=== PATIENT | female | born 1985 | race African-American/Black ===

== ENCOUNTER 2016-07-30 13:36 | Emergency (ER) | payer OTHER ==
[~2016-07-30] VITALS: Ht 175.3 cm; Wt 81.6 kg
[~2016-07-30 13:36] MED LIST: CEPH-264 PO; CLIN300C86 PO; DULO60CA6 PO; GABA-587 PO; HYDR12.53 PO; METR500T PO; OXYC-250 PO; PHEN-318 PO; PRED20TA PO; PROP40TA PO; TRAM-29 PO
[2016-07-30] MEDS ORDERED: IV NORMAL SALINE 1000ML BAG 1,000 ML IV ONE (13:45)
[2016-07-30 14:21] LABS: BASO % 1 % (0-3); EOS % 2 % (0-3); HEMATOCRIT 39.6 % (36.0-47.0); HEMOGLOBIN 12.6 g/dL (12.0-15.5); LYMPH # 2.3 x10^3/uL (1.0-4.8); LYMPH % 34 % (24-48); MEAN CORPUSCULAR HEMOGLOBIN 26 pg (25-35); MEAN CORPUSCULAR HGB CONC 32 g/dL (31-37); MEAN CORPUSCULAR VOLUME 80 fL (79-100); MONO % 4 % (0-9); NEUT % 59 % (31-73); PLATELET COUNT 297 x10^3/uL (140-400); RED BLOOD COUNT 4.92 x10^6/uL (3.50-5.40); RED CELL DISTRIBUTION WIDTH 20.6 % (11.5-14.5); WHITE BLOOD COUNT 6.9 x10^3/uL (4.0-11.0)
[2016-07-30 14:38] LABS: PLT ESTIMATE ADEQUATE (ADEQUATE)
[2016-07-30 14:39] LABS: ANISOCYTOSIS MOD
[2016-07-30 14:40] LABS: NEG OBC SER NEG; POS OBC SER POS
[2016-07-30 15:00] VITALS: BP 160/94
[2016-07-30 15:06] LABS: OBC FLU VALID
[2016-07-30 15:18] LABS: CREATININE 0.9 mg/dL (0.6-1.0); GFR 87.3; POTASSIUM 3.7 mmol/L (3.5-5.1)
[2016-07-30 15:23] LABS: ALBUMIN 3.5 g/dL (3.4-5.0); TOTAL BILIRUBIN 0.4 mg/dL (0.2-1.0); TOTAL PROTEIN 7.1 g/dL (6.4-8.2)
[2016-07-30] MEDS ORDERED: CYCL10TA2 PO (15:40)
[2016-07-30] MEDS ORDERED: CYCLOBENZAPRINE 10 MG TABLET. PO ONE (15:45)
--- NOTE | 2016-07-30 16:04 | ED.ADGEN ---
Past Medical History Past Medical History: Anxiety, Arthritis, Fibromyalgia, Hypertension, Stroke Additional Past Medical Histor: lupus, RA Past Surgical History: , Tubal ligation Additional Information: Pt reports she is taking Chantix and now only smoking about 3 cigs/day. Alcohol Use: None Drug Use: None Adult General Chief Complaint Chief Complaint: NAUSEA/VOMITING/DIARRHA HPI HPI Patient is a 31 year old woman, history of fibromyalgia, hypertension, lupus who presents emergency department with multiple complaints. Patient states she' s been experiencing nausea, with occasional episodes of vomiting, diarrhea over the past several weeks. She states that she had a possible syncopal episode at home today, states that she was leaving her bathroom when she believes that she passed out, was feeling lightheaded when this occurred, she had just finished using the bathroom, she states that she remembers leaving the bathroom, and then was opening the door for EMS, she did call EMS herself as she was home alone. She states that she had not had any diarrhea or vomiting just before this episode occurred, had felt flushed and hot, and had just used the restroom as stated, both urination and defecation. Patient states that she's had similar episodes of syncope multiple times, and that they have been evaluated previously without any specific cause identified. She denies any possibility of , states that she ate around 11:30 this morning without issue, no chest pain, no shortness of breath, no focal weakness emesis or tingling, is complaining of fibromyalgia pain which she states is worse in the past several days, no fevers, occasional chills, no urinary complaints. she states that she is out of her pain medication currently, as she ran out and missed her appointment with her primary care provider. She is complaining of her typical fibromyalgia type pain throughout her back and legs. Review of Systems Review of Systems Constitutional: Denies fever, complaining of chills. Eyes: Denies change in visual acuity. [] HENT: Denies nasal congestion or sore throat. [] Respiratory: Denies cough or shortness of breath. [] Cardiovascular: Denies chest pain or edema. [] GI: Denies abdominal pain, nausea, vomiting, bloody stools or diarrhea. [] : Denies dysuria. [] Musculoskeletal: Body aches and pain consistent with her fibromyalgia. Integument: Denies rash. [] Neurologic: Denies headache, focal weakness or sensory changes. [] Endocrine: Denies polyuria or polydipsia. [] Lymphatic: Denies swollen glands. [] Psychiatric: Denies depression or anxiety. [] Current Medications Current Medications Current Medications Medications (Trade) Dose Ordered Sig/Mago Start Time Stop Time Status Last Admin Dose Admin Cyclobenzaprine HCl (Flexeril) 10 mg 1X ONCE 07/30/16 15:45 07/30/16 15:46 DC 07/30/16 15:31 10 MG Sodium Chloride (Iv Sodium Chloride 0.9% 1000ml Bag) 1,000 ml @ 1,000 mls/hr 1X ONCE 07/30/16 13:45 07/30/16 14:44 DC 07/30/16 14:40 1,000 MLS/HR Allergies Allergies Allergies Coded Allergies Type Severity Reaction Last Updated Verified naproxen Allergy Unknown 05/20/16 Yes Physical Exam Physical Exam Constitutional: Well developed, well nourished, no acute distress, non-toxic appearance. [] HENT: Normocephalic, atraumatic, bilateral external ears normal, oropharynx moist, no oral exudates, nose normal. [] Eyes: PERRLA, EOMI, conjunctiva normal, no discharge. [] Neck: Normal range of motion, no tenderness, supple, no stridor. [] Cardiovascular:Heart rate regular rhythm, no murmur [] Lungs & Thorax: Bilateral breath sounds clear to auscultation [] Abdomen: Bowel sounds normal, soft, no tenderness, no masses, no pulsatile masses. [] Skin: Warm, dry, no erythema, no rash. [] Back: No tenderness, no CVA tenderness. [] Extremities: No tenderness, no cyanosis, no clubbing, ROM intact, no edema. [] Neurologic: Alert and oriented X 3, normal motor function, normal sensory function, no focal deficits noted. [] Psychologic: Affect normal, judgement normal, mood normal. [] Current Patient Data Vital Signs Vital Signs Date Time Temp Pulse Resp B/P Pulse Ox O2 Delivery O2 Flow Rate FiO2 07/30/16 13:36 98.7 77 16 147/89 100 Room Air 98.7 Lab Values Laboratory Tests Test 07/30/16 14:00 07/30/16 14:32 07/30/16 14:55 White Blood Count 6.9x10^3/uL (4.0-11.0) Red Blood Count 4.92x10^6/uL (3.50-5.40) Hemoglobin 12.6g/dL (12.0-15.5) Hematocrit 39.6% (36.0-47.0) Mean Corpuscular Volume 80fL (79-100) Mean Corpuscular Hemoglobin 26pg (25-35) Mean Corpuscular Hemoglobin Concent 32g/dL (31-37) Red Cell Distribution Width 20.6% (11.5-14.5) H Platelet Count 297x10^3/uL (140-400) Neutrophils (%) (Auto) 59% (31-73) Lymphocytes (%) (Auto) 34% (24-48) Monocytes (%) (Auto) 4% (0-9) Eosinophils (%) (Auto) 2% (0-3) Basophils (%) (Auto) 1% (0-3) Neutrophils # (Auto) 4.0x10^3uL (1.8-7.7) Lymphocytes # (Auto) 2.3x10^3/uL (1.0-4.8) Monocytes # (Auto) 0.3x10^3/uL (0.0-1.1) Eosinophils # (Auto) 0.2x10^3/uL (0.0-0.7) Basophils # (Auto) 0.0x10^3/uL (0.0-0.2) Platelet Estimate Adequate (ADEQUATE) Anisocytosis Mod Serum Test, Qualitative Negative (NEG) Influenza Type A Antigen Negative (NEGATIVE) Influenza Type B Antigen Negative (NEGATIVE) Sodium Level 143mmol/L (136-145) Potassium Level 3.7mmol/L (3.5-5.1) Chloride Level 109mmol/L (98-107) H Carbon Dioxide Level 28mmol/L (21-32) Anion Gap 6 (6-14) Blood Urea Nitrogen 10mg/dL (7-20) Creatinine 0.9mg/dL (0.6-1.0) Estimated GFR (Cockcroft-Gault) 87.3 BUN/Creatinine Ratio 11 (6-20) Glucose Level 78mg/dL (70-99) Calcium Level 9.0mg/dL (8.5-10.1) Total Bilirubin 0.4mg/dL (0.2-1.0) Aspartate Amino Transferase (AST) 21U/L (15-37) Alanine Aminotransferase (ALT) 22U/L (14-59) Alkaline Phosphatase 48U/L (46-116) Total Protein 7.1g/dL (6.4-8.2) Albumin 3.5g/dL (3.4-5.0) Albumin/Globulin Ratio 1.0 (1.0-1.7) Lipase 105U/L (73-393) Laboratory Tests 07/30/16 14:00 Laboratory Tests 07/30/16 14:55 EKG EKG EC: Sinus rhythm, heart rate 85 bpm, upright axis, QTC of 421, AK 136, QRS of 88, no ST elevations or depressions, no evidence of acute ST abnormalities. [] Radiology/Procedures Radiology/Procedures Not indicated. [] Course & Med Decision Making Course & Med Decision Making Pertinent Labs and Imaging studies reviewed. (See chart for details) After discussion with patient, it is unclear if she did experience a syncopal episode, where she was feeling more lightheadedness without any true loss of consciousness. She denies striking her head or neck, denies any other new or different symptoms aside from her chronic fibromyalgia type pain. Patient with a normal examination neurologically, no evidence of lower airspace disease or upper airspace disease identified. Flu swab was performed in the ED, which was negative, along with basic laboratory studies, patient received IV fluids in the ED. Discussed with the patient that although she has taken chronic pain medications for her fibromyalgia previously, this is needs to be addressed by her primary care provider, she was given a cyclobenzaprine the ED for her pain, had orthostatics performed for negative, was ambulating without difficulty in the ED. I did discuss with patient the importance of following up with primary care provider, and concerning symptoms that would prompt return to the ED. Patient voiced understanding and agreement, discharged home in stable condition with a short course of cyclobenzaprine, clear and detailed return instructions, and plan to follow-up with her primary care provider. Dragon Disclaimer Dragon Disclaimer This electronic medical record was generated, in whole or in part, using a voice recognition dictation system. Departure Impression: Primary Impression: Chronic pain Disposition: 01 HOME, SELF-CARE Condition: STABLE Scripts Cyclobenzaprine Hcl 10 Mg [id number] Mg PO TID PRN MUSCLE PAIN #10 TAB Prov:LUIZ DON DO 07/30/16 Problem Qualifiers Primary Impression: Chronic pain Chronic pain type: other chronic pain Qualified Code: G89.29 - Other chronic pain LUIZ DON DO Jul 30, 2016 16:03
--- NOTE | 2016-07-31 07:08 | EKG ---
[facility] [address] [place] [address] Test Date: 2016-07-30 Test Time: 14:36:28 Pat Name: VICKEY GILMORE Department: Room: Gender: F [employer]: : 1985 Requested By: LUIZ DON Order Number: [id number] Reading MD: Measurements Intervals Cache Rate: 85 P: 67 MT: 136 QRS: 73 QRSD: 88 T: 68 QT: 354 QTc: 421 Interpretive Statements SINUS RHYTHM BIATRIAL ENLARGEMENT QRS(T) CONTOUR ABNORMALITY CONSIDER ANTEROLATERAL MYOCARDIAL DAMAGE RI6.01 Unconfirmed report Compared to ECG 01/07/2016 01:42:43 Atrial abnormality now present
== END 2016-07-30 15:48 | disposition home or self-care (01) ==
LOC: ER 13:36
DX: G89.29 Other chronic pain (principal); M79.7 Fibromyalgia; R55 Syncope and collapse; R11.2 Nausea with vomiting, unspecified; I10 Essential (primary) hypertension; M19.90 Unspecified osteoarthritis, unspecified site; Z86.73 Personal history of transient ischemic attack (TIA), and cerebral infarction without residual deficits; M32.9 Systemic lupus erythematosus, unspecified; M06.9 Rheumatoid arthritis, unspecified; F17.210 Nicotine dependence, cigarettes, uncomplicated; Z98.51 Tubal ligation status; Z88.8 Allergy status to other drugs, medicaments and biological substances
CPT/HCPCS: 36415; 80053; 83690; 84703; 85007; 85027; 87804; 93005; 96360; 99285; J7030

== ENCOUNTER 2016-09-25 10:11 | Emergency (ER) | payer OTHER ==
[~2016-09-25] VITALS: Ht 175.3 cm; Wt 78.9 kg
[~2016-09-25 10:11] MED LIST changes: +CYCL10TA2 PO
[2016-09-25] MEDS ORDERED: PREDNISONE 20 MG TABLET PO ONE (10:45)
[2016-09-25] MEDS ORDERED: OXYCODONE/APAP 7.5/325 TABLET. PO ONE (10:45)
[2016-09-25] MEDS ORDERED: hydrALAZINE 20 MG/ML VIAL. IVP ONE (10:45)
[2016-09-25] MEDS ORDERED: CLONIDINE HCL 0.1 MG TABLET PO ONE (11:15)
--- NOTE | 2016-09-25 11:50 | PHYS DOC ---
Past Medical History Past Medical History: Anxiety, Arthritis, Depression, Fibromyalgia, Hypertension, Stroke Additional Past Medical Histor: lupus, RA Past Surgical History: , Tubal ligation Alcohol Use: None Drug Use: None Adult General Chief Complaint Chief Complaint: SUICDAL IDEATION HPI HPI Patient is a 31 year old female brought to the ED by ambulance with the complaint of suicidal ideation. EMS reports that the patient texted her [employer] and told her [employer] that she felt like taking some pills. The [employer] called 911. EMS went to find the patient stable, she did not really want to come to the hospital but they convinced her to come in and get checked out. The patient tells me that she does have a history of depression. She lately has been feeling overwhelmed. She has been dealing with a lot of medical problems and also has chronic pain. She has been dealing with family situation that is causing her stress. The patient does have a medical doctor who she sees regularly and is helping her. Her medical problems include lupus, "rheumatoid arthritis", fibromyalgia, hypertension, chronic pain. She was recently started on oxycodone for pain. She also takes gabapentin for pain. She takes prednisone 20 mg daily currently and believes that that is causing some of her symptoms as well. The patient this morning was feeling overwhelmed. She had her pill bottles sitting in front of her and she was thinking about taking pills. She contacted her [employer], who she has through the mental health department, and states that she did not take any pills other than her usual morning dose. The patient did not take her prednisone to take everything else that she was supposed to take. The patient says she did take about 4 or 5 gabapentin last night. She cannot really say why she did that, she doesn't believe that she was suicidal, but she felt overwhelmed and was having a lot of pain. The patient specifically denies taking any pills this morning and she denies taking anything other than the 45 gabapentin last night. She denies taking any aspirin or acetaminophen. She denies any illicit substances. Patient has a history of depression and states that she has had 2 prior suicide attempts for which she was hospitalized. One was around 2008 or , one was around 2004 or . She took pills both times. Review of Systems Review of Systems Constitutional: Denies fever or chills [] Eyes: Denies change in visual acuity, redness, or eye pain [] HENT: Denies nasal congestion or sore throat [] Respiratory: Denies cough or shortness of breath [] Cardiovascular: Denies chest pain GI: Denies abdominal pain, nausea, vomiting, bloody stools or diarrhea [] : Denies dysuria or hematuria [] Musculoskeletal: Generalized body aches and pains attributed to her chronic medical conditions Integument: Denies rash or skin lesions [] Neurologic: Denies headache, focal weakness or sensory changes [] Current Medications Current Medications Current Medications Medications (Trade) Dose Ordered Sig/Mago Start Time Stop Time Status Last Admin Dose Admin Clonidine HCl (Catapres) 0.1 mg 1X ONCE 09/25/16 11:15 09/25/16 11:16 DC 09/25/16 11:38 0.1 MG Hydralazine HCl (Apresoline) 10 mg 1X ONCE 09/25/16 10:45 09/25/16 10:46 DC Oxycodone/ Acetaminophen (Percocet 7.5/ 325) 1 tab 1X ONCE 09/25/16 10:45 09/25/16 10:46 DC 09/25/16 10:57 1 TAB Prednisone (Prednisone) 20 mg 1X ONCE 09/25/16 10:45 09/25/16 10:46 DC 09/25/16 10:57 20 MG Allergies Allergies Allergies Coded Allergies Type Severity Reaction Last Updated Verified naproxen Allergy Unknown 05/20/16 Yes Physical Exam Physical Exam Constitutional: Well developed, well nourished, no acute distress, non-toxic appearance. Alert, mentating normally, affect is depressed but not tearful, no evident toxidrome. HENT: Normocephalic, atraumatic, bilateral external ears normal, nose normal. [ ] Eyes: conjunctiva normal, no discharge. [] Neck: Normal range of motion, no stridor. [] Cardiovascular:Heart rate regular rhythm, no murmur [] Lungs & Thorax: Bilateral breath sounds clear to auscultation [] Skin: Warm, dry, no erythema, no rash. [] Extremities: No tenderness, no cyanosis, no clubbing, ROM intact, no edema. [] Neurologic: Alert and oriented X 3, normal motor function, normal sensory function, no focal deficits noted. [] Current Patient Data Vital Signs Vital Signs Date Time Temp Pulse Resp B/P Pulse Ox O2 Delivery O2 Flow Rate FiO2 09/25/16 11:38 80 166/100 09/25/16 10:11 98.1 18 98 Room Air 98.1 EKG EKG [] Radiology/Procedures Radiology/Procedures [] Course & Med Decision Making Course & Med Decision Making Pertinent Labs and Imaging studies reviewed. (See chart for details) 31-year-old female brought to the ED by EMS from home for suicidal ideation. The complaint was made by the patient's [employer]. The patient had told the [employer] that she was thinking about taking pills. I discussed the situation at length with the patient. The patient tells me that she definitely does not want to , she feels overwhelmed, depressed, and she had a brief thought of taking pills but she states at this time she is not suicidal. She did consent to be seen in the ED but she stated she would rather not have blood tests done. Her initial blood pressure was elevated but she had taken her morning blood pressure meds not long before arrival. Her blood pressure did come down to the range of 160 and then I did give her clonidine 0.1 mg for blood pressure control. I called Papa, from the pat team, who came to the ED to see the patient and talked to her at length. In fact, the patient has an appointment today in the mental health clinic with her provider. He made arrangements for her to be sent in a cab from the ED to her mental health clinic appointment. He felt that the patient is stable for discharge and close outpatient follow-up and I agree. The patient has a good relationship with her [employer] and follow-up arrangements in place. [] Xochilt Disclaimer Xochilt Disclaimer This electronic medical record was generated, in whole or in part, using a voice recognition dictation system. Departure Departure Impression: Primary Impression: Depression with suicidal ideation Additional Impression: Chronic pain Disposition: 01 HOME, SELF-CARE Condition: STABLE Referrals: MELCHOR PEREZ MD (PCP) Patient Instructions: Suicidal Feelings, How to Help Yourself Additional Instructions: As you discussed with Papa, you will keep your appointment this afternoon at the mental health clinic. Take all medications as directed. As we discussed, if you wish to lower your prednisone dose or stop taking prednisone, it's important to work with your doctor to decrease your dose slowly so you don't have medical problems from stopping it. Be sure to take all of your medications as directed. You were recently prescribed an opiate for pain. Be sure you understand the side effects of this medication. Be sure you understand exactly how your doctor wants you to take it. Discharge planning as you discussed with [facility] team. Problem Qualifiers MARLENA ALVAREZ MD Sep 25, 2016 11:49
[2016-09-25 13:30] VITALS: BP 127/89
== END 2016-09-25 13:32 | disposition home or self-care (01) ==
LOC: ER 10:11
DX: R45.851 Suicidal ideations (principal); F32.9 Major depressive disorder, single episode, unspecified; G89.29 Other chronic pain; M06.9 Rheumatoid arthritis, unspecified; M79.7 Fibromyalgia; I10 Essential (primary) hypertension; F41.9 Anxiety disorder, unspecified; M32.9 Systemic lupus erythematosus, unspecified; Z86.73 Personal history of transient ischemic attack (TIA), and cerebral infarction without residual deficits; Z88.8 Allergy status to other drugs, medicaments and biological substances
CPT/HCPCS: 99284; J7512

== ENCOUNTER 2016-10-15 20:16 | Emergency (ER) | payer OTHER ==
[~2016-10-15] VITALS: Ht 175.3 cm; Wt 79.4 kg
[2016-10-15] MEDS: HYDROMORPHONE 2 MG/ML VIAL. IV PRN ×2 (21:48→23:18)
[2016-10-15] MEDS ORDERED: LORAZEPAM 1 MG TABLET. PO ONE (22:00)
[2016-10-15] MEDS ORDERED: ONDANSETRON PF 4 MG/2 ML VIAL. IV ONE (22:00)
--- NOTE | 2016-10-15 23:33 | PHYS DOC ---
Past Medical History Past Medical History: Anxiety, Arthritis, Depression, Fibromyalgia, Hypertension, TIA Additional Past Medical Histor: lupus, RA Past Surgical History: , Tubal ligation Alcohol Use: None Drug Use: None Adult General Chief Complaint Chief Complaint: WEAKNESS/GENERALIZED HPI HPI 31-year-old female presenting to the emergency department today with pain all over. She reports having pain from hurting fingertips to the tips of her toes. She describes it as severe pain is worse with movement. It is nonradiating intermittent tenderness present for 6 weeks. She denies any specific location of the pain. Review of systems is negative for shortness of breath fevers chills nausea vomiting. All other review of systems is negative unless otherwise noted in history of present illness. Review of Systems Review of Systems SEE ABOVE. Current Medications Current Medications Current Medications Medications (Trade) Dose Ordered Sig/Mago Start Time Stop Time Status Last Admin Dose Admin Hydromorphone HCl (Dilaudid) 0.5 mg PRN Q1HR PRN 10/15/16 21:45 10/15/16 23:18 0.5 MG Lorazepam (Ativan) 1 mg 1X ONCE 10/15/16 22:00 10/15/16 22:01 DC 10/15/16 21:47 1 MG Ondansetron HCl (Zofran) 4 mg 1X ONCE 10/15/16 22:00 10/15/16 22:01 DC 10/15/16 21:47 4 MG Allergies Allergies Allergies Coded Allergies Type Severity Reaction Last Updated Verified naproxen Allergy Unknown 05/20/16 Yes Physical Exam Physical Exam Constitutional: Well developed, well nourished, no acute distress, non-toxic appearance. [] HENT: Normocephalic, atraumatic, bilateral external ears normal, oropharynx moist, no oral exudates, nose normal. Eyes: PERRLA, EOMI, conjunctiva normal, no discharge. Neck: Normal range of motion, no tenderness, supple, no stridor. [] Cardiovascular:Heart rate regular rhythm, no murmur Lungs & Thorax: Bilateral breath sounds clear to auscultation [] Abdomen: Bowel sounds normal, soft, no tenderness, no masses, no pulsatile masses. Skin: Warm, dry, no erythema, no rash. Back: No tenderness, no CVA tenderness. [] Extremities: No tenderness, no cyanosis, no clubbing, ROM intact, no edema. [] Neurologic: Alert and oriented X 3, normal motor function, normal sensory function, no focal deficits noted. Psychologic: Affect normal, judgement normal, mood normal. [] Current Patient Data Vital Signs Vital Signs Date Time Temp Pulse Resp B/P Pulse Ox O2 Delivery O2 Flow Rate FiO2 10/15/16 23:18 18 Room Air 10/15/16 21:48 100 10/15/16 20:25 98.0 74 138/85 98.0 EKG EKG [] Radiology/Procedures Radiology/Procedures [] Course & Med Decision Making Course & Med Decision Making Pertinent Labs and Imaging studies reviewed. (See chart for details) [] 31-year-old female presenting to the emergency department today with generalized pain all over. Afebrile normal vital signs. Normal clinical physical exam. A she was treated with pain medications in the emergency department. She was in discharged home to follow up with her primary care doctor for chronic fibromyalgia treatment. Dragon Disclaimer Dragon Disclaimer This electronic medical record was generated, in whole or in part, using a voice recognition dictation system. Departure Departure Impression: Primary Impression: Fibromyalgia Disposition: HOME, SELF-CARE Condition: STABLE Referrals: MELCHOR PEREZ MD (PCP) Patient Instructions: Fibromyalgia Additional Instructions: Thank you for allowing us to participate in your care today. Followup with your primary care physician in 3 days if your symptoms do not improve. If you do not have a primary care provider you can ask for a list of our primary care providers. Return to the emergency department you have any new or concerning findings. This should be evaluated by the primary care physician and any necessary consulting services for continued management within a few days after discharge. Return to emergency room if you have any new or concerning symptoms including but not limited to fever, chills, nausea, vomiting, intractable pain, any new rashes, chest pain, shortness of air, uncontrolled bleeding, difficulty breathing, and/or vision loss. You may have been prescribed medication that can change in your level of thinking and ability to operate machinery. These medications include hydrocodone and Ativan. Also, Benadryl has been known to do this as well. Be sure to check with your pharmacist and ask if the medications you've prescribed can affect your level of consciousness. I recommend not operating heavy machinery or driving while on medication such as these. PARRIS ALCALA MD Oct 15, 2016 23:33
[2016-10-15] MEDS ORDERED: MORP15TA PO (23:37)
[2016-10-15 23:40] VITALS: BP 103/55
== END 2016-10-16 | disposition home or self-care (01) ==
LOC: ER 20:16
DX: M79.7 Fibromyalgia (principal); F41.9 Anxiety disorder, unspecified; F32.9 Major depressive disorder, single episode, unspecified; I10 Essential (primary) hypertension; M32.9 Systemic lupus erythematosus, unspecified; M06.9 Rheumatoid arthritis, unspecified; Z88.8 Allergy status to other drugs, medicaments and biological substances; Z86.73 Personal history of transient ischemic attack (TIA), and cerebral infarction without residual deficits
CPT/HCPCS: 81025; 96374; 96375; 96376; 99284; J1170; J2405

== ENCOUNTER 2016-10-20 20:47 | Emergency (ER) | payer OTHER ==
[~2016-10-20] VITALS: Ht 175.3 cm; Wt 83.5 kg
[~2016-10-20 20:47] MED LIST changes: +MORP15TA PO
[2016-10-20 22:00] VITALS: BP 109/70
[2016-10-20] MEDS ORDERED: PRED20TA PO (22:07)
--- NOTE | 2016-10-20 22:08 | PHYS DOC ---
Past Medical History Past Medical History: Anxiety, Arthritis, Depression, Fibromyalgia, Hypertension, Seizure, TIA Additional Past Medical Histor: lupus, RA Past Surgical History: , Tubal ligation Alcohol Use: None Drug Use: None Adult General Chief Complaint Chief Complaint: SEIZURE HPI HPI Patient is a 31 year old female who presents with complaint of seizure-like activity noticed by male significant other this evening. States she has not had a seizure in 2 months. States she was late taking gabapentin today because she had to get it refilled. She otherwise notes diffuse body pain that has been present chronically, but is worse recently after having been off chronic prednisone 20mg daily for the past 1.5 week. Also states she has bilateral headache, gradual in onset, exactly the same as prior headaches that she takes excedrin for. She denies f/c, n/v, diarrhea, vision changes, numbness, tingling , weakness. Review of Systems Review of Systems Constitutional: Denies fever or chills [] Eyes: Denies change in visual acuity, redness, or eye pain [] HENT: Denies nasal congestion or sore throat [] Respiratory: Denies cough or shortness of breath [] Cardiovascular: No additional information not addressed in HPI [] GI: Denies abdominal pain, nausea, vomiting, bloody stools or diarrhea [] : Denies dysuria or hematuria [] Musculoskeletal: Denies back pain [] Integument: Denies rash or skin lesions [] Neurologic: Denies focal weakness or sensory changes [] Endocrine: Denies polyuria or polydipsia [] Current Medications Current Medications Current Medications Medications (Trade) Dose Ordered Sig/[facility] Start Time Stop Time Status Last Admin Dose Admin Acetaminophen/ Aspirin/Caffeine (Excedrin Migraine) 1 tab 1X ONCE 10/20/16 22:30 10/20/16 22:30 DC Prednisone (Prednisone) 20 mg STK-MED ONCE 10/20/16 22:17 10/20/16 22:18 DC Allergies Allergies Allergies Coded Allergies Type Severity Reaction Last Updated Verified naproxen Allergy Unknown 05/20/16 Yes Physical Exam Physical Exam Constitutional: Well developed, well nourished, no acute distress, non-toxic appearance. [] HENT: Normocephalic, atraumatic, bilateral external ears normal, oropharynx moist, no oral exudates, nose normal. [] Eyes: PERRLA, EOMI, conjunctiva normal, no discharge. [] Neck: Normal range of motion, supple, no stridor. [] Cardiovascular:Heart rate regular rhythm [] Lungs & Thorax: Bilateral breath sounds clear to auscultation [] Abdomen: Bowel sounds normal, soft, no tenderness. [] Skin: Warm, dry, no erythema, no rash. [] Back: Normal ROM. [] Extremities: Diffuse tenderness with no visual or palpable abnormality, ROM intact, no edema. [] Neurologic: Alert and oriented X 3, normal motor function, normal sensory function, no focal deficits noted, cranial nerves II through XII intact. [] Psychologic: Affect normal, judgement normal, mood normal. [] Current Patient Data Vital Signs Vital Signs Date Time Temp Pulse Resp B/P Pulse Ox O2 Delivery O2 Flow Rate FiO2 10/20/16 22:00 60 10 109/70 100 Room Air 10/20/16 21:05 98.2 98.2 EKG EKG EKG as interpreted by me as normal sinus rhythm, rate 66, no ST-T changes, normal intervals, no ectopy Course & Med Decision Making Course & Med Decision Making Pertinent Labs and Imaging studies reviewed. (See chart for details) Will give short course of prednisone for home and encouraged her to see here PCP for other medication refills in the future. Wants a neurology clinic referral. Told her not to drive until cleared by Neurology or her PCP. Return precautions given. She understands and agrees with plan. Dragon Disclaimer Dragon Disclaimer This electronic medical record was generated, in whole or in part, using a voice recognition dictation system. Departure Departure Impression: Primary Impression: Chronic pain Additional Impression: Seizure-like activity Disposition: 01 HOME, SELF-CARE Condition: STABLE Referrals: MELCHOR PEREZ MD (PCP) Patient Instructions: Seizure, Adult, [id number] Additional Instructions: Follow up with your primary care doctor within 3 days. Please call Neurology clinic to schedule follow up appointment within 1 week. Return for any concerns. Scripts Prednisone 20 Mg Tablet1 Tab PO DAILY #4 TAB Prov:Darien SMITH MD 10/20/16 Problem Qualifiers Primary Impression: Chronic pain Chronic pain type: chronic pain syndrome Qualified Code: G89.4 - Chronic pain syndrome Darien SMITH MD Oct 20, 2016 22:08
[2016-10-20] MEDS ORDERED: PREDNISONE 20 MG TABLET ONE (22:17)
[2016-10-20] MEDS ORDERED: PREDNISONE 20 MG TABLET PO ONE (22:30)
[2016-10-20] MEDS ORDERED: ASA/APAP/CAFFEINE 250/250/65MG TABLET. PO ONE (22:30)
--- NOTE | 2016-10-21 00:24 | EKG ---
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
== END 2016-10-20 22:30 | disposition home or self-care (01) ==
LOC: ER 20:47
DX: R56.9 Unspecified convulsions (principal); G89.29 Other chronic pain; R51 Headache; F32.9 Major depressive disorder, single episode, unspecified; F41.9 Anxiety disorder, unspecified; I10 Essential (primary) hypertension; M32.9 Systemic lupus erythematosus, unspecified; M79.7 Fibromyalgia; Z86.73 Personal history of transient ischemic attack (TIA), and cerebral infarction without residual deficits; M06.9 Rheumatoid arthritis, unspecified; Z79.82 Long term (current) use of aspirin; Z98.51 Tubal ligation status; Z88.8 Allergy status to other drugs, medicaments and biological substances
CPT/HCPCS: 93005; 99284

== ENCOUNTER 2016-10-24 19:16 | Emergency (ER) | payer OTHER ==
[~2016-10-24] VITALS: Ht 175.3 cm; Wt 83.5 kg
--- NOTE | 2016-10-24 21:21 | PHYS DOC ---
Past Medical History Past Medical History: Anxiety, Arthritis, Depression, Fibromyalgia, Hypertension, Seizure, Schizophrenia, TIA, Other Additional Past Medical Histor: lupus, RA Past Surgical History: , Tubal ligation Alcohol Use: None Drug Use: None Adult General Chief Complaint Chief Complaint: MULTIPLE COMPLAINTS HPI HPI Patient is a 31 year old female who presents with complaint of anxiety. Patient states that she is having anxiety due to multiple issues at this time. Patient states that she was with people who "I've known all my life" who she states helped her get medications filled that were prescribed to her for high blood pressure, anxiety, and chronic pain. Patient states that at some point these individuals took her medication and her currently stating that they don't know anything about the meds that she had accidentally left in the car. Patient states that she is having severe anxiety and also complains of generalized body pain which she attributes to fibromyalgia and systemic lupus erythematosus. The patient is currently asking that we contact authorities as she would like to make a police report on this matter. The patient also states that she contacted her doctor who told her to come to the emergency department for help with her symptoms. Patient states that her blood pressure was elevated last night which she attributes to anxiety. Patient also admits that she was admitted to [facility] approximately one week ago for treatment of anxiety. Patient denies any localizing pain but states that she hurts "all over." Patient denies any suicidal or homicidal ideation currently. Review of Systems Review of Systems Constitutional: Anxiety, Denies fever or chills [] Eyes: Denies change in visual acuity, redness, or eye pain [] HENT: Denies nasal congestion or sore throat [] Respiratory: Denies cough or shortness of breath [] Cardiovascular: Denies chest pain or edema [] GI: Denies abdominal pain, nausea, vomiting, bloody stools or diarrhea [] : Denies dysuria or hematuria [] Musculoskeletal: Body aches [] Integument: Denies rash or skin lesions [] Neurologic: Denies headache, focal weakness or sensory changes [] Current Medications Current Medications Current Medications Medications (Trade) Dose Ordered Sig/[facility] Start Time Stop Time Status Last Admin Dose Admin Ceftriaxone Sodium (Rocephin 1gm Ivpb For Omni) 50 ml @ 100 mls/hr 1X ONCE 10/24/16 22:30 10/24/16 22:59 DC 10/24/16 22:37 100 MLS/HR Haloperidol Lactate (Haldol) 5 mg 1X ONCE 10/24/16 21:30 10/24/16 21:31 DC 10/24/16 21:37 5 MG Lorazepam 1 mg 1 mg 1X ONCE 10/24/16 21:30 10/24/16 21:31 DC 10/24/16 21:33 1 MG Sodium Chloride 500 ml @ 500 mls/hr 1X ONCE 10/24/16 21:30 10/24/16 22:29 DC 10/24/16 21:31 500 MLS/HR Allergies Allergies Allergies Coded Allergies Type Severity Reaction Last Updated Verified naproxen Allergy Intermediate 10/24/16 Yes Physical Exam Physical Exam Constitutional: Alert, afebrile, appears anxious. [] HENT: Normocephalic, atraumatic, bilateral external ears normal, oropharynx moist, no oral exudates, nose normal. [] Eyes: PERRLA, EOMI, conjunctiva normal, no discharge. [] Neck: Normal range of motion, no tenderness, supple, no stridor. [] Cardiovascular:Heart rate regular rhythm, no murmur [] Lungs & Thorax: Bilateral breath sounds clear to auscultation [] Abdomen: Bowel sounds normal, soft, no tenderness, no masses, no pulsatile masses. [] Skin: Warm, dry, no erythema, no rash. [] Back: No tenderness, no CVA tenderness. [] Extremities: Diffuse muscle tenderness, no cyanosis, no clubbing, ROM intact, no edema. [] Neurologic: Alert and oriented X 3, normal motor function, normal sensory function, no focal deficits noted. [] Current Patient Data Vital Signs Vital Signs Date Time Temp Pulse Resp B/P Pulse Ox O2 Delivery O2 Flow Rate FiO2 10/24/16 21:30 72 134/85 98 Room Air 10/24/16 19:48 100 24 100.0 Lab Values Laboratory Tests Test 10/24/16 20:15 10/24/16 21:35 White Blood Count 6.7x10^3/uL (4.0-11.0) Red Blood Count 4.32x10^6/uL (3.50-5.40) Hemoglobin 11.0g/dL (12.0-15.5) L Hematocrit 34.9% (36.0-47.0) L Mean Corpuscular Volume 81fL (79-100) Mean Corpuscular Hemoglobin 26pg (25-35) Mean Corpuscular Hemoglobin Concent 32g/dL (31-37) Red Cell Distribution Width 18.0% (11.5-14.5) H Platelet Count 236x10^3/uL (140-400) Neutrophils (%) (Auto) 61% (31-73) Lymphocytes (%) (Auto) 28% (24-48) Monocytes (%) (Auto) 7% (0-9) Eosinophils (%) (Auto) 4% (0-3) H Basophils (%) (Auto) 0% (0-3) Neutrophils # (Auto) 4.1x10^3uL (1.8-7.7) Lymphocytes # (Auto) 1.8x10^3/uL (1.0-4.8) Monocytes # (Auto) 0.4x10^3/uL (0.0-1.1) Eosinophils # (Auto) 0.3x10^3/uL (0.0-0.7) Basophils # (Auto) 0.0x10^3/uL (0.0-0.2) Sodium Level 137mmol/L (136-145) Potassium Level 5.1mmol/L (3.5-5.1) Chloride Level 103mmol/L (98-107) Carbon Dioxide Level 27mmol/L (21-32) Anion Gap 7 (6-14) Blood Urea Nitrogen 10mg/dL (7-20) Creatinine 0.8mg/dL (0.6-1.0) Estimated GFR (Cockcroft-Gault) 100.0 Glucose Level 87mg/dL (70-99) Calcium Level 9.2mg/dL (8.5-10.1) Magnesium Level 1.7mg/dL (1.8-2.4) L Lipase 70U/L (73-393) L Urine Collection Type Unknown Urine Color Red Urine Clarity Bloody Urine pH 8.0 Urine Specific [place] <=1.005 Urine Protein 100mg/dL (NEG-TRACE) Urine Glucose (UA) Negativemg/dL (NEG) Urine Ketones (Stick) Negativemg/dL (NEG) Urine Blood Large (NEG) Urine Nitrite Positive (NEG) Urine Bilirubin Negative (NEG) Urine Urobilinogen Dipstick 0.2mg/dL (0.2 mg/dL) Urine Leukocyte Esterase Trace (NEG) Urine RBC Tntc/HPF (0-2) Urine WBC 5-10/HPF (0-4) Urine Squamous Epithelial Cells Few/LPF Urine Bacteria Many/HPF (0-FEW) Urine Mucus Slight/LPF Urine Opiates Screen Neg (NEG) Urine Methadone Screen Neg (NEG) Urine Barbiturates Neg (NEG) Urine Phencyclidine Screen Pos (NEG) Urine Amphetamine/Methamphetamine Neg (NEG) Urine Benzodiazepines Screen Pos (NEG) Urine Cocaine Screen Neg (NEG) Urine Cannabinoids Screen Pos (NEG) Urine Ethyl Alcohol Neg (NEG) Laboratory Tests 10/24/16 20:15 Laboratory Tests 10/24/16 20:15 EKG EKG Not performed [] Radiology/Procedures Radiology/Procedures Not performed [] Course & Med Decision Making Course & Med Decision Making Pertinent Labs and Imaging studies reviewed. (See chart for details) Patient was given Haldol and Ativan in the emergency department with improvement in patient's anxiety. Patient was found to have urinary tract infection and was given a dose of Rocephin to initiate treatment. [facility] Police Department was contacted and officers came to the emergency department to talk with the patient. They stated however that the patient did not give them much information and stated that she would need to contact them at a later time when she was ready to talk with them in regards to what happened with her medications. The patient otherwise has improved. The patient will be discharged with a prescription for Keflex for treatment of urinary tract infection. Advised patient follow-up with her primary doctor in the next 3-5 days and return to emergency department for any worsening symptoms. Patient voiced understanding and in agreement with treatment plan. Dragon Disclaimer Dragon Disclaimer This electronic medical record was generated, in whole or in part, using a voice recognition dictation system. Departure Departure Impression: Primary Impression: UTI (urinary tract infection) Additional Impressions: Anxiety Substance abuse Disposition: 01 HOME, SELF-CARE Condition: IMPROVED Referrals: MELCHOR PEREZ MD (PCP) Patient Instructions: Anxiety and Panic Attacks, Urinary Tract Infection Additional Instructions: Follow-up with her primary doctor in the next 3-5 days. Return to the emergency department for any worsening symptoms. Scripts Cephalexin (Keflex)500 Mg Capsule1 Cap PO BID #14 CAP Prov:FOLAND,BIANCA J MD 10/24/16 Problem Qualifiers Primary Impression: UTI (urinary tract infection) Urinary tract infection type: site unspecified Hematuria presence: with hematuria Qualified Code: N39.0 - Urinary tract infection, site not specified BIANCA PINEDA MD Oct 24, 2016 21:21
[2016-10-24 21:26] LABS: BASO % 0 % (0-3); EOS % 4 % (0-3); HEMATOCRIT 34.9 % (36.0-47.0); LYMPH # 1.8 x10^3/uL (1.0-4.8); LYMPH % 28 % (24-48); MEAN CORPUSCULAR HEMOGLOBIN 26 pg (25-35); MEAN CORPUSCULAR HGB CONC 32 g/dL (31-37); MEAN CORPUSCULAR VOLUME 81 fL (79-100); MONO % 7 % (0-9); NEUT % 61 % (31-73); PLATELET COUNT 236 x10^3/uL (140-400); RED BLOOD COUNT 4.32 x10^6/uL (3.50-5.40); WHITE BLOOD COUNT 6.7 x10^3/uL (4.0-11.0)
[2016-10-24] MEDS ORDERED: LORAZEPAM 2 MG/ML VIAL. IV ONE (21:30)
[2016-10-24] MEDS ORDERED: HALOPERIDOL LACTATE 5 MG/ML VIAL. IVP ONE (21:30)
[2016-10-24] MEDS ORDERED: IV NORMAL SALINE 500ML BAG 500 ML IV ONE (21:30)
[2016-10-24 21:55] LABS: BILIRUBIN,URINE NEGATIVE (NEG); GLUCOSE,URINE NEGATIVE (NEG); NITRITE,URINE POSITIVE (NEG); PROTEIN,URINE 100 mg/dL (NEG-TRACE); UROBILINOGEN,URINE 0.2 mg/dL (0.2 mg/dL)
[2016-10-24 21:57] LABS: BACTERIA,URINE MANY /HPF (0-FEW); RBC,URINE TNTC /HPF (0-2); SQUAMOUS EPITHELIAL CELL,UR FEW /LPF
[2016-10-24 22:03] LABS: BARBITURATES NEG (NEG); BENZODIAZEPINES POS (NEG); CANNABINOIDS POS (NEG); COCAINE NEG (NEG); METHADONE NEG (NEG); OPIATES NEG (NEG); PHENCYCLIDINE POS (NEG)
[2016-10-24 22:06] LABS: ETHANOL, URINE NEG (NEG)
[2016-10-24 22:10] LABS: CALCIUM 9.2 mg/dL (8.5-10.1); CREATININE 0.8 mg/dL (0.6-1.0); POTASSIUM 5.1 mmol/L (3.5-5.1)
[2016-10-24 22:11] LABS: MAGNESIUM 1.7 mg/dL (1.8-2.4)
[2016-10-24] MEDS ORDERED: CEPH-264 PO (22:32)
[2016-10-24 23:30] VITALS: BP 111/61
--- NOTE | 2016-10-26 18:24 | VNOTE ---
CALL BACK NOTE CALL BACK Microbiology 10/24/16 Urine Culture - Final, Complete 10/24/16 Urine Culture Result 1 (KENNEY) - Final, Complete 10/24/16 Antimicrobic Susceptibility - Final, Complete Attempted to contact patient regards to urine culture being positive for Escherichia coli. She was placed on cephalosporin when she was discharged which is intermediate coverage. Attempted to contact right the number [phone] answer stating that she is not accepting calls. Patient will be provided with a certified letter. YOEL SOLANO FRONT DESK ASSOCIATE Oct 26, 2016 18:24
== END 2016-10-24 23:41 | disposition home or self-care (01) ==
LOC: ER 19:16
DX: F41.9 Anxiety disorder, unspecified (principal); N39.0 Urinary tract infection, site not specified; F19.10 Other psychoactive substance abuse, uncomplicated; F32.9 Major depressive disorder, single episode, unspecified; M79.7 Fibromyalgia; I10 Essential (primary) hypertension; F20.9 Schizophrenia, unspecified; G89.29 Other chronic pain; M32.9 Systemic lupus erythematosus, unspecified; M06.9 Rheumatoid arthritis, unspecified; Z86.73 Personal history of transient ischemic attack (TIA), and cerebral infarction without residual deficits; Z88.6 Allergy status to analgesic agent
CPT/HCPCS: 36415; 80048; 80305; 80320; 81001; 83690; 83735; 85027; 87086; 96361; 96365; 96375; 99284; J0690; J1630; J2060; J7040; G0481

== ENCOUNTER 2016-10-25 17:07 | Emergency (ER) | payer OTHER ==
[2016-10-25] MEDS ORDERED: IV NORMAL SALINE 1000ML BAG 1,000 ML IV ONE ×2 (17:15→21:30)
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
[2016-10-25 17:53] LABS: BASO % 0 % (0-3); EOS % 2 % (0-3); HEMATOCRIT 33.2 % (36.0-47.0); HEMOGLOBIN 10.6 g/dL (12.0-15.5); LYMPH # 1.2 x10^3/uL (1.0-4.8); LYMPH % 17 % (24-48); MEAN CORPUSCULAR HEMOGLOBIN 25 pg (25-35); MEAN CORPUSCULAR HGB CONC 32 g/dL (31-37); MEAN CORPUSCULAR VOLUME 79 fL (79-100); MONO % 7 % (0-9); NEUT % 74 % (31-73); PLATELET COUNT 229 x10^3/uL (140-400); RED BLOOD COUNT 4.21 x10^6/uL (3.50-5.40); RED CELL DISTRIBUTION WIDTH 17.9 % (11.5-14.5); WHITE BLOOD COUNT 7.4 x10^3/uL (4.0-11.0)
[2016-10-25 18:15] LABS: CALCIUM 8.6 mg/dL (8.5-10.1); CREATININE 1.1 mg/dL (0.6-1.0); GFR 69.2; POTASSIUM 4.7 mmol/L (3.5-5.1)
[2016-10-25] MEDS ORDERED: CONTRAST GIVEN MC PRN (18:15)
[2016-10-25] MEDS ORDERED: IOHEXOL 300 MG/ML 75 ML VIAL IV ONE (18:15)
[2016-10-25 18:20] LABS: ALBUMIN 3.4 g/dL (3.4-5.0); DIRECT BILIRUBIN 0.1 mg/dL (0.0-0.2); TOTAL BILIRUBIN 0.3 mg/dL (0.2-1.0); TOTAL PROTEIN 7.1 g/dL (6.4-8.2)
[2016-10-25 18:42] LABS: ETHANOL < 10 mg/dL (0-10)
[2016-10-25 18:48] LABS: NEG OBC UR NEG; POS OBC UR POS
[2016-10-25 18:51] LABS: BARBITURATES NEG (NEG); BENZODIAZEPINES POS (NEG); CANNABINOIDS POS (NEG); COCAINE NEG (NEG); METHADONE NEG (NEG); OPIATES NEG (NEG); PHENCYCLIDINE POS (NEG)
--- NOTE | 2016-10-25 19:01 | RAD ---
Examination: CT head and cervical spine without contrast HISTORY History of fall, headache, neck pain. COMPARISON None available. TECHNIQUE Axial CT images of the head was performed without contrast. Axial CT images of cervical spine was performed without contrast. Coronal sagittal reformats were performed. Exposure: One or more of the following dose reduction technique were utilized for this examination: 1. Automated exposure control. 2.Adjustment of MA and /or KV according to patient size. 3. Use of iterative reconstruction technique. Findings: There is no evidence of midline shift. There is no acute intracranial bleed or extra-axial collection identified. Streak artifact limits evaluation. The basal cisterns are not effaced. The cervical vertebral bodies are maintained. There is no evidence of listhesis identified. Evaluation cervical spine is limited due to positioning of the cervical spine in the CT gantry. Lucency identified in the midline in the posterior arch of C1 likely congenital non fusion of the posterior arch of C1. The lateral masses of C1 align with C2 vertebra. The C2 dens appears intact. No evidence of prevertebral soft tissue swelling identified. IMPRESSION 1. No acute intracranial findings. 2. No acute fracture cervical spine. Correlate clinically. 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 Electronically signed by: Man Perales (Oct 25, 2016 19:00:23)
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
[2016-10-25] MEDS: fentaNYL PF VIAL 100 MCG/2 ML VIAL IV PRN ×2 (19:53→21:01)
[2016-10-25 20:30] VITALS: BP 155/96
--- NOTE | 2016-10-25 20:34 | RAD ---
Examination: CT of the thoracic and lumbar spine without contrast. HISTORY History of neck pain, back pain. COMPARISON None available. TECHNIQUE Axial CT images of the thoracic and lumbar spine were performed using reformats from the CT of the abdomen pelvis. Coronal sagittal reformats were performed. Exposure: One or more of the following dose reduction technique were utilized for this examination: 1. Automated exposure control. 2.Adjustment of MA and /or KV according to patient size. 3. Use of iterative reconstruction technique. Findings. The vertebral body heights in the thoracic and lumbar spine are well aligned. There is no obvious acute fracture identified. The bilateral facets are well appear to be well aligned. IMPRESSION No acute osseous findings. Electronically signed by: Man Perales (Oct 25, 2016 20:33:12)
[2016-10-25] MEDS ORDERED: DIPHTH,PERTUSS(ACELL),TET TOX 0.5 ML DISP.SYRIN. VAX IM ONE (21:30)
[2016-10-25] MEDS ORDERED: MORPHINE SULFATE 2 MG/ML DISP.SYRIN. IV ONE (23:00)
--- NOTE | 2016-10-26 09:30 | RAD ---
AP view of the pelvis and two-view study of both hips History: Seizure history. Bilateral hip pain. Left hip: No acute fracture or dislocation or osteolytic process is seen. There is mild primary degenerative osteoarthritis of the left hip joint. Right hip: No acute fracture or dislocation or osteolytic process is seen. Mild primary degenerative osteoarthritis of the right hip joint is seen. AP view of the pelvis: There is a deformity of the right pubic bone consistent with an old healed fracture. No acute appearing fracture is evident. No diastases of the symphysis pubis or either SI joint is seen. Contrast is seen within the urinary bladder. Findings: No acute fracture.
== END 2016-10-25 23:05 | disposition home or self-care (01) ==
LOC: ER 17:07
DX: G89.29 Other chronic pain (principal); M54.9 Dorsalgia, unspecified; M54.2 Cervicalgia; F20.9 Schizophrenia, unspecified; F32.9 Major depressive disorder, single episode, unspecified; F41.9 Anxiety disorder, unspecified; I10 Essential (primary) hypertension; G40.909 Epilepsy, unspecified, not intractable, without status epilepticus; M06.9 Rheumatoid arthritis, unspecified; Z86.73 Personal history of transient ischemic attack (TIA), and cerebral infarction without residual deficits; S80.211A Abrasion, right knee, initial encounter; S60.519A Abrasion of unspecified hand, initial encounter; M79.7 Fibromyalgia; Z98.51 Tubal ligation status; M32.9 Systemic lupus erythematosus, unspecified; F19.10 Other psychoactive substance abuse, uncomplicated; Z88.8 Allergy status to other drugs, medicaments and biological substances
CPT/HCPCS: 36415; 70450; 71260; 72125; 73521; 74177; 80048; 80076; 80305; 80320; 81025; 83605; 83690; 85027; 90471; 90715; 96361; 96374; 96375; 96376; 99285; G6038; J2270; J3010; J7030; Q9967; G0480; G0481; 80196

== ENCOUNTER 2016-10-26 02:00 | Emergency (ER) | payer OTHER ==
[~2016-10-26] VITALS: Ht 175.3 cm; Wt 81.6 kg
[2016-10-26 02:52] VITALS: BP 181/100
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
[2016-10-26] MEDS ORDERED: ALPRAZolam 0.5 MG TABLET PO ONE (04:15)
== END 2016-10-26 04:09 | disposition home or self-care (01) ==
LOC: ER 02:00
DX: F41.9 Anxiety disorder, unspecified (principal); F19.10 Other psychoactive substance abuse, uncomplicated; M19.90 Unspecified osteoarthritis, unspecified site; F32.9 Major depressive disorder, single episode, unspecified; M79.7 Fibromyalgia; I10 Essential (primary) hypertension; F20.9 Schizophrenia, unspecified; F12.10 Cannabis abuse, uncomplicated; Z86.73 Personal history of transient ischemic attack (TIA), and cerebral infarction without residual deficits; Z88.6 Allergy status to analgesic agent
CPT/HCPCS: 99284

== ENCOUNTER 2016-11-01 15:23 | Emergency (ER) | payer OTHER ==
[~2016-11-01] VITALS: Ht 175.3 cm; Wt 81.6 kg
[2016-11-01 15:34] VITALS: BP 132/83
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
== END 2016-11-01 16:04 | disposition home or self-care (01) ==
LOC: ER 15:23
DX: Z76.5 Malingerer [conscious simulation] (principal); Z91.14 Patient's other noncompliance with medication regimen; F41.9 Anxiety disorder, unspecified; M19.90 Unspecified osteoarthritis, unspecified site; F32.9 Major depressive disorder, single episode, unspecified; M79.7 Fibromyalgia; I10 Essential (primary) hypertension; F20.9 Schizophrenia, unspecified; F12.10 Cannabis abuse, uncomplicated; Z88.6 Allergy status to analgesic agent; Z86.73 Personal history of transient ischemic attack (TIA), and cerebral infarction without residual deficits
CPT/HCPCS: 99283

== ENCOUNTER 2017-03-01 16:51 | Emergency (ER) | payer OTHER ==
[~2017-03-01] VITALS: Ht 175.3 cm; Wt 81.6 kg
[~2017-03-01 16:51] MED LIST changes: +CLIN300C8 PO; -CLIN300C86 PO; -OXYC-250 PO; +OXYC-328 PO; -TRAM-29 PO; +TRAM-48 PO
[2017-03-01] MEDS ORDERED: PROPRANOLOL 40 MG TABLET. PO STA (17:35)
[2017-03-01] MEDS ORDERED: METH4TAB2 PO (17:43)
[2017-03-01] MEDS ORDERED: PROP40TA PO (17:43)
[2017-03-01] MEDS ORDERED: LOSA25TA4 PO (17:43)
[2017-03-01] MEDS ORDERED: HYDR12.58 PO (17:43)
--- NOTE | 2017-03-01 17:43 | PHYS DOC ---
Past Medical History Past Medical History: Anxiety, Arthritis, Depression, Fibromyalgia, Hypertension, Seizure, Schizophrenia, TIA, Other Additional Past Medical Histor: lupus, RA Past Surgical History: , Tubal ligation Alcohol Use: None Drug Use: Marijuana Adult General Chief Complaint Chief Complaint: PAIN CONTROL [facility] HPI Patient is a 32 year old female with history of hypertension, anxiety, schizophrenia, fibromyalgia, lupus, chronic pain, drug-seeking behavior, and multiple other medical problems who presents today complaining of generalized pain throughout her body that is chronic in nature. She states her doctor is out of town until March 11, 2017 hence she is not able to follow-up. She states she takes oxycodone 30 mg and would like a prescription for this to use until her doctor comes back. Patient is begging for the pain medicine. She states that she wants me to call her pharmacy and order her medicines for pain. Patient is well known to this ED for drug seeking behavior and has been escorted out of this building with the security due to behavior issue. Patient is telling me she typically comes to the emergency room and she is given prescription for oxycodone 30 mg to use at home. Patient is also asking refill for her blood pressure medicine and would like something for chronic dental pain and a rash to bilateral lower extremities from lupus. Review of Systems Review of Systems Constitutional: Denies fever or chills [] Eyes: Denies change in visual acuity, redness, or eye pain [] HENT: Denies nasal congestion or sore throat [] Respiratory: Denies cough or shortness of breath [] Cardiovascular: No additional information not addressed in HPI [] GI: Denies abdominal pain, nausea, vomiting, bloody stools or diarrhea [] : Denies dysuria or hematuria [] Musculoskeletal: chronic pain Integument: rash Neurologic: Denies headache, focal weakness or sensory changes [] Endocrine: Denies polyuria or polydipsia [] Current Medications Current Medications Current Medications Medications (Trade) Dose Ordered Sig/Mago Start Time Stop Time Status Last Admin Dose Admin Hydrochlorothiazide (Microzide) 12.5 mg 1X ONCE 03/01/17 18:00 03/01/17 18:01 Oxycodone/ Acetaminophen (Percocet 5/325) 2 tab 1X ONCE 03/01/17 18:00 03/01/17 18:01 Propranolol HCl (Inderal) 40 mg 1X STAT 03/01/17 17:35 03/01/17 17:38 DC Allergies Allergies Allergies Coded Allergies Type Severity Reaction Last Updated Verified naproxen Allergy Intermediate 10/24/16 Yes Physical Exam Physical Exam Constitutional: Well developed, well nourished, no acute distress, non-toxic appearance. [] HENT: Normocephalic, atraumatic, bilateral external ears normal, oropharynx moist, no oral exudates, nose normal. [] Eyes: PERRLA, EOMI, conjunctiva normal, no discharge. [] Neck: Normal range of motion, no tenderness, supple, no stridor. [] Cardiovascular:Heart rate regular rhythm, no murmur [] Lungs & Thorax: Bilateral breath sounds clear to auscultation [] Abdomen: Bowel sounds normal, soft, no tenderness, no masses, no pulsatile masses. [] Skin: Small amount of erythematous macular rash consistent with lupus on bilateral lower extremities. Back: No tenderness, no CVA tenderness. [] Extremities: No tenderness, no cyanosis, no clubbing, ROM intact, no edema. [] Neurologic: Alert and oriented X 3, normal motor function, normal sensory function, no focal deficits noted. [] Psychologic: Affect normal, judgement normal, mood normal. [] Current Patient Data Vital Signs Vital Signs Date Time Temp Pulse Resp B/P (MAP) Pulse Ox O2 Delivery O2 Flow Rate FiO2 03/01/17 17:03 98.3 81 18 99 Room Air 98.3 EKG EKG [] Radiology/Procedures Radiology/Procedures [] Course & Med Decision Making Course & Med Decision Making Pertinent Labs and Imaging studies reviewed. (See chart for details) Please see history of present illness, this is a 32-year-old female patient with history of drug seeking behavior, chronic pain, presenting to the ED today requesting a prescription for oxycodone 30 mg which she takes for chronic lupus , chronic pain, chronic rheumatoid arthritis, chronic dental pain. Patient is begging for medication. Informed patient I will not give her prescription for oxycodone she can go see her own doctor or a pain clinic. This patient has been known for coming to this ED for drug. I gave her prescription for Propranol, Medrol dose pack, HCTZ and Losartan. D/c with /fu with her PCP or pain clinic Xochilt Disclatanya Lemon Disclaimer This electronic medical record was generated, in whole or in part, using a voice recognition dictation system. Departure Departure Impression: Primary Impression: Chronic pain Additional Impressions: Medication refill Pain, dental Chronic hypertension Rash Narcotic dependence Disposition: HOME, SELF-CARE Condition: STABLE Referrals: MELCHOR PEREZ MD (PCP) follow up with your doctor or the pain clinic as soon as you can EDSON GOLDSMITH MD You can follow up with the pain clinic on Friday. Call them for appointment Patient Instructions: Dental Pain, Hypertension, Rash, [id number] Additional Instructions: Please follow-up with your own doctor or the pain clinic doctor provided as soon as possible. Take the prescribed medicines as ordered. Scripts Losartan Potassium (LOSARTAN POTASSIUM) 25 Mg Tablet 25 MG PO DAILY, #12 TAB Prov: JUMANA ROSSI APRN 03/01/17 Hydrochlorothiazide (HYDROCHLOROTHIAZIDE TABLET) 12.5 Mg Tablet 1 TAB PO DAILY, #12 TAB 5 Refills Prov: JUMANA ROSSI APRN 03/01/17 Propranolol Hcl (PROPRANOLOL HCL) 40 Mg Tablet 40 MG PO DAILY, #12 TAB Prov: JUMANA ROSSI APRN 03/01/17 Methylprednisolone (MEDROL) 4 Mg Tab.ds.pk 1 PKG PO UD, #1 PKG Prov: JUMANA ROSSI APRN 03/01/17 Problem Qualifiers Primary Impression: Chronic pain Chronic pain type: chronic pain syndrome Qualified Codes: G89.4 - Chronic pain syndrome JUMANA ROSSI APRN Mar 01, 2017 17:43
[2017-03-01 17:51] VITALS: BP 185/110
[2017-03-01] MEDS ORDERED: hydroCHLOROthiazide 12.5 MG CAPSULE PO ONE (18:00)
[2017-03-01] MEDS ORDERED: oxyCODONE/APAP 5/325 1 TAB TABLET PO ONE (18:00)
== END 2017-03-01 17:57 | disposition home or self-care (01) ==
LOC: ER 16:51
DX: G89.4 Chronic pain syndrome (principal); K08.89 Other specified disorders of teeth and supporting structures; Z76.0 Encounter for issue of repeat prescription; R21 Rash and other nonspecific skin eruption; I10 Essential (primary) hypertension; R10.84 Generalized abdominal pain; F17.200 Nicotine dependence, unspecified, uncomplicated; M79.7 Fibromyalgia; M19.90 Unspecified osteoarthritis, unspecified site; F20.9 Schizophrenia, unspecified; Z86.73 Personal history of transient ischemic attack (TIA), and cerebral infarction without residual deficits; M06.9 Rheumatoid arthritis, unspecified; M32.9 Systemic lupus erythematosus, unspecified; Z98.51 Tubal ligation status; Z88.6 Allergy status to analgesic agent
CPT/HCPCS: 99284

== ENCOUNTER 2017-03-12 17:16 | Emergency (ER) | payer OTHER ==
[~2017-03-12] VITALS: Ht 175.3 cm; Wt 81.6 kg
[~2017-03-12 17:16] MED LIST changes: +HYDR12.58 PO; +LOSA25TA4 PO; +METH4TAB2 PO
[2017-03-12 17:25] VITALS: BP 153/102
[2017-03-12] MEDS ORDERED: METH4TAB2 PO (18:33)
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
== END 2017-03-12 18:41 | disposition home or self-care (01) ==
LOC: ER 17:16
DX: G89.4 Chronic pain syndrome (principal); M79.7 Fibromyalgia; I10 Essential (primary) hypertension; F11.20 Opioid dependence, uncomplicated; M32.9 Systemic lupus erythematosus, unspecified; M06.9 Rheumatoid arthritis, unspecified; Z86.73 Personal history of transient ischemic attack (TIA), and cerebral infarction without residual deficits; Z98.51 Tubal ligation status; Z98.890 Other specified postprocedural states; Z88.6 Allergy status to analgesic agent
CPT/HCPCS: 99283

== ENCOUNTER 2017-11-07 01:48 | Emergency (ER) | payer OTHER ==
[2017-11-07 02:35] LABS: BASO # 0.1 x10^3/uL (0.0-0.2); BASO % 1 % (0-3); EOS # 0.1 x10^3/uL (0.0-0.7); EOS % 3 % (0-3); HEMATOCRIT 35.3 % (36.0-47.0); HEMOGLOBIN 11.8 g/dL (12.0-15.5); LYMPH # 2.7 x10^3/uL (1.0-4.8); LYMPH % 61 % (24-48); MEAN CORPUSCULAR HEMOGLOBIN 27 pg (25-35); MEAN CORPUSCULAR HGB CONC 33 g/dL (31-37); MEAN CORPUSCULAR VOLUME 81 fL (79-100); MONO # 0.4 x10^3/uL (0.0-1.1); MONO % 8 % (0-9); NEUT # 1.2 x10^3uL (1.8-7.7); NEUT % 27 % (31-73); PLATELET COUNT 194 x10^3/uL (140-400); RED BLOOD COUNT 4.33 x10^6/uL (3.50-5.40); RED CELL DISTRIBUTION WIDTH 16.4 % (11.5-14.5); WHITE BLOOD COUNT 4.5 x10^3/uL (4.0-11.0)
[2017-11-07 02:36] LABS: ADD MAN DIFF? YES
[2017-11-07 02:41] LABS: BILIRUBIN,URINE LARGE (NEG); COLOR,URINE RED; GLUCOSE,URINE NEGATIVE (NEG); NITRITE,URINE POSITIVE (NEG); PH,URINE 5.5; PROTEIN,URINE >=300 mg/dL (NEG-TRACE)
[2017-11-07 02:43] LABS: NEG OBC UR NEG; POS OBC UR POS; U PREG PATIENT NEGATIVE (NEG)
[2017-11-07] MEDS: oxyCODONE/APAP 10/325 1 TAB TABLET PO (02:45)
[2017-11-07] MEDS: diazePAM 5 MG TABLET PO (02:45)
[2017-11-07 02:48] LABS: BACTERIA,URINE FEW /HPF (0-FEW); CLARITY,URINE BLOODY; RBC,URINE TNTC /HPF (0-2); SQUAMOUS EPITHELIAL CELL,UR FEW /LPF
[2017-11-07 04:02] LABS: % ATYL 1 % (0-0); % LYMPHS 56 % (24-48); % MONOS 4 % (0-10); % SEGS 39 % (35-66); PLT ESTIMATE ADEQUATE (ADEQUATE)
== END 2017-11-07 04:17 | disposition home or self-care (01) ==
LOC: ER 01:48
DX: R55 Syncope and collapse (principal); F20.9 Schizophrenia, unspecified; I10 Essential (primary) hypertension; M32.9 Systemic lupus erythematosus, unspecified; M79.7 Fibromyalgia; Z86.73 Personal history of transient ischemic attack (TIA), and cerebral infarction without residual deficits; Z98.51 Tubal ligation status; F12.10 Cannabis abuse, uncomplicated; Z88.5 Allergy status to narcotic agent
CPT/HCPCS: 36415; 81001; 81025; 85007; 85025; 93005; 99285-25

== ENCOUNTER 2017-11-09 21:59 | Emergency (ER) | payer OTHER ==
[2017-11-10] MEDS: cloNIDine HCL 0.1 MG TABLET PO (00:30)
[2017-11-10] MEDS: IV NORMAL SALINE 1000ML BAG 1,000 ML IV (00:30)
[2017-11-10] MEDS: DEXAMETHASONE SOD PHOS 20 MG/5 ML VIAL. IV (00:30)
== END 2017-11-10 01:30 | disposition home or self-care (01) ==
LOC: ER 21:59
DX: N39.0 Urinary tract infection, site not specified (principal); G89.29 Other chronic pain; I10 Essential (primary) hypertension; F20.9 Schizophrenia, unspecified; F12.10 Cannabis abuse, uncomplicated; M79.7 Fibromyalgia; Z86.73 Personal history of transient ischemic attack (TIA), and cerebral infarction without residual deficits; M32.9 Systemic lupus erythematosus, unspecified; Z88.5 Allergy status to narcotic agent
CPT/HCPCS: 96365; 96375; 99285-25; J0690; J1100; J7030

== ENCOUNTER 2017-12-02 18:44 | Emergency (ER) | payer OTHER ==
[2017-12-02 19:17] LABS: URINE HCG POC HCG NEGATIVE (Negative)
[2017-12-02 19:18] LABS: BILIRUBIN,URINE NEGATIVE (NEG); CLARITY,URINE CLEAR; COLOR,URINE YELLOW; GLUCOSE,URINE NEGATIVE (NEG); NITRITE,URINE NEGATIVE (NEG); PROTEIN,URINE NEGATIVE (NEG-TRACE); UROBILINOGEN,URINE 0.2 mg/dL (0.2 mg/dL)
[2017-12-02 19:22] LABS: NEG OBC UR NEG; POS OBC UR POS; U PREG PATIENT NEGATIVE (NEG)
[2017-12-02 19:26] LABS: BACTERIA,URINE FEW /HPF (0-FEW); RBC,URINE OCC /HPF (0-2); SQUAMOUS EPITHELIAL CELL,UR FEW /LPF; WBC,URINE OCC /HPF (0-4)
[2017-12-02] MEDS: predniSONE 10 MG TABLET PO (19:39)
[2017-12-02] MEDS: diphenhydrAMINE HCL 25 MG CAPSULE PO (19:40)
[2017-12-02] MEDS: oxyCODONE/APAP 5/325 1 TAB TABLET PO (19:40)
== END 2017-12-02 20:09 | disposition home or self-care (01) ==
LOC: ER 18:44
DX: G89.29 Other chronic pain (principal); Z76.0 Encounter for issue of repeat prescription; R30.0 Dysuria; M25.50 Pain in unspecified joint; I10 Essential (primary) hypertension; M06.9 Rheumatoid arthritis, unspecified; M79.7 Fibromyalgia; M32.9 Systemic lupus erythematosus, unspecified; F20.9 Schizophrenia, unspecified; F12.10 Cannabis abuse, uncomplicated; Z86.73 Personal history of transient ischemic attack (TIA), and cerebral infarction without residual deficits; Z98.51 Tubal ligation status; Z98.890 Other specified postprocedural states; Z88.5 Allergy status to narcotic agent
CPT/HCPCS: 81001; 81025; 87491; 87591; 99284; J7512; Q0163

== ENCOUNTER 2018-01-18 01:34 | Emergency (ER) | payer OTHER ==
[2018-01-18] MEDS: IV NORMAL SALINE 1000ML BAG 1,000 ML IV (02:44)
[2018-01-18] MEDS: DEXAMETHASONE SOD PHOS 4 MG/ML VIAL IV (02:44)
[2018-01-18] MEDS: fentaNYL PF VIAL 100 MCG/2 ML VIAL IV ×2 (02:46→04:22)
[2018-01-18 02:59] LABS: URINE HCG POC HCG NEGATIVE (Negative)
[2018-01-18 03:09] LABS: ADD MAN DIFF? NO
[2018-01-18 03:13] LABS: BASO # 0.1 x10^3/uL (0.0-0.2); BASO % 2 % (0-3); EOS # 0.1 x10^3/uL (0.0-0.7); EOS % 2 % (0-3); HEMATOCRIT 39.5 % (36.0-47.0); HEMOGLOBIN 13.2 g/dL (12.0-15.5); LYMPH # 2.9 x10^3/uL (1.0-4.8); LYMPH % 47 % (24-48); MEAN CORPUSCULAR HEMOGLOBIN 28 pg (25-35); MEAN CORPUSCULAR HGB CONC 33 g/dL (31-37); MEAN CORPUSCULAR VOLUME 83 fL (79-100); MONO # 0.4 x10^3/uL (0.0-1.1); MONO % 6 % (0-9); NEUT # 2.6 x10^3uL (1.8-7.7); NEUT % 44 % (31-73); PLATELET COUNT 227 x10^3/uL (140-400); RED BLOOD COUNT 4.77 x10^6/uL (3.50-5.40); RED CELL DISTRIBUTION WIDTH 16.7 % (11.5-14.5); WHITE BLOOD COUNT 6.1 x10^3/uL (4.0-11.0)
[2018-01-18 04:30] LABS: ANION GAP 8 (6-14); BLOOD UREA NITROGEN 13 mg/dL (7-20); BUN/CREATININE RATIO 14 (6-20); CALCIUM 8.6 mg/dL (8.5-10.1); CARBON DIOXIDE 27 mmol/L (21-32); CHLORIDE 106 mmol/L (98-107); CREATININE 0.9 mg/dL (0.6-1.0); GFR 86.7; GLUCOSE 94 mg/dL (70-99); POTASSIUM 3.7 mmol/L (3.5-5.1); SODIUM 141 mmol/L (136-145)
[2018-01-18 04:34] LABS: D-DIMER 0.51 ug/mlFEU (0.00-0.50)
[2018-01-18 04:35] LABS: ALBUMIN 3.5 g/dL (3.4-5.0); ALK PHOS 49 U/L (46-116); ALT (SGPT) 19 U/L (14-59); AST (SGOT) 15 U/L (15-37); TOTAL BILIRUBIN 0.3 mg/dL (0.2-1.0); TOTAL PROTEIN 7.1 g/dL (6.4-8.2)
[2018-01-18 04:44] LABS: CKMB INDEX 0.4 % (0-4); CKMB MASS 0.9 ng/mL (0.0-3.6); CREATINE KINASE 206 U/L (26-192)
[2018-01-18 04:57] LABS: TROPONINI < 0.017 ng/mL (0.000-0.055)
[2018-01-18] MEDS ORDERED: CONTRAST GIVEN. MC (05:15)
[2018-01-18] MEDS: IOHEXOL 300 MG/ML 100ML VIAL. IV (05:40)
== END 2018-01-18 06:20 | disposition home or self-care (01) ==
LOC: ER 01:34
DX: G89.29 Other chronic pain (principal); M54.5 Low back pain; R53.1 Weakness; I10 Essential (primary) hypertension; F20.9 Schizophrenia, unspecified; M32.9 Systemic lupus erythematosus, unspecified; F17.210 Nicotine dependence, cigarettes, uncomplicated; Z86.73 Personal history of transient ischemic attack (TIA), and cerebral infarction without residual deficits; Z88.5 Allergy status to narcotic agent
CPT/HCPCS: 36415; 71275; 80053; 81025; 82553; 83735; 84484; 85025; 85379; 93005; 96374; 96375; 96376; 99285-25; J1100; J2060; J3010; J7030; Q9967

== ENCOUNTER 2018-03-01 21:15 | Emergency (ER) | payer OTHER ==
[~2018-03-01] VITALS: Ht 175.3 cm; Wt 81.6 kg
[~2018-03-01 21:15] MED LIST changes: +DIAZ5TAB PO; -LOSA25TA4 PO; +LOSA25TA5 PO; +OXYC-323 PO; +SULF1TAB24 PO
[2018-03-01 21:59] LABS: BILIRUBIN,URINE NEGATIVE (NEG); CLARITY,URINE CLEAR; COLOR,URINE YELLOW; NITRITE,URINE NEGATIVE (NEG); PH,URINE 6.5; PROTEIN,URINE NEGATIVE (NEG-TRACE); UROBILINOGEN,URINE 0.2 mg/dL (0.2 mg/dL)
[2018-03-01 22:06] LABS: BACTERIA,URINE FEW /HPF (0-FEW); RBC,URINE 0 /HPF (0-2); SQUAMOUS EPITHELIAL CELL,UR FEW /LPF; WBC,URINE OCC /HPF (0-4)
--- NOTE | 2018-03-01 22:19 | PHYS DOC ---
Past Medical History Past Medical History: Anxiety, Arthritis, Depression, Fibromyalgia, Hypertension, Seizure, Schizophrenia, TIA, Other Additional Past Medical Histor: lupus, RA Past Surgical History: , Tubal ligation Alcohol Use: None Drug Use: Marijuana Adult General Chief Complaint Chief Complaint: WEAKNESS/GENERALIZED HPI HPI Patient is a 33 year old female who presents with weakness x 1.5 weeks, palpitations, and knee and ankle pain. Review of Systems Review of Systems Constitutional: Denies fever or chills [] Eyes: Denies change in visual acuity, redness, or eye pain [] HENT: Denies nasal congestion or sore throat [] Respiratory: Denies cough or shortness of breath [] Cardiovascular: No additional information not addressed in HPI [] GI: Denies abdominal pain, nausea, vomiting, bloody stools or diarrhea [] : Denies dysuria or hematuria [] Musculoskeletal: Denies back pain or joint pain [] Integument: Denies rash or skin lesions [] Neurologic: Denies headache, focal weakness or sensory changes [] Endocrine: Denies polyuria or polydipsia [] All other systems were reviewed and found to be within normal limits, except as documented in this note. Current Medications Current Medications Current Medications Medications (Trade) Dose Ordered Sig/Mago Start Time Stop Time Status Last Admin Dose Admin Sodium Polystyrene Sulfonate (Kayexalate) 30 gm 1X ONCE 03/02/18 00:30 03/02/18 00:31 Allergies Allergies Allergies Coded Allergies Type Severity Reaction Last Updated Verified naproxen Allergy Intermediate 10/24/16 Yes Physical Exam Physical Exam Constitutional: Well developed, well nourished, no acute distress, non-toxic appearance. [] HENT: Normocephalic, atraumatic, bilateral external ears normal, oropharynx moist, no oral exudates, nose normal. [] Eyes: PERRLA, EOMI, conjunctiva normal, no discharge. [] Neck: Normal range of motion, no tenderness, supple, no stridor. [] Cardiovascular:Heart rate regular rhythm, no murmur. Peaked T waves. [] Lungs & Thorax: Bilateral breath sounds clear to auscultation [] Abdomen: Bowel sounds normal, soft, no tenderness, no masses, no pulsatile masses. [] Skin: Warm, dry, no erythema, no rash. [] Back: No tenderness, no CVA tenderness. [] Extremities: bilateral knee and ankle tenderness, no cyanosis, no clubbing, ROM intact, no edema. [] Neurologic: Alert and oriented X 3, normal motor function, normal sensory function, no focal deficits noted. [] Psychologic: Affect normal, judgement normal, mood normal. [] Current Patient Data Vital Signs Vital Signs Date Time Temp Pulse Resp B/P (MAP) Pulse Ox O2 Delivery O2 Flow Rate FiO2 03/01/18 21:15 99.2 77 18 158/104 (122) 100 Room Air 99.2 Lab Values Laboratory Tests Test 03/01/18 21:25 03/01/18 21:36 03/01/18 22:51 03/01/18 23:30 Urine Collection Type Void Urine Color Yellow Urine Clarity Clear Urine pH 6.5 Urine Specific [place] 1.010 Urine Protein Negative mg/dL (NEG-TRACE) Urine Glucose (UA) Negative mg/dL (NEG) Urine Ketones (Stick) Negative mg/dL (NEG) Urine Blood Negative (NEG) Urine Nitrite Negative (NEG) Urine Bilirubin Negative (NEG) Urine Urobilinogen Dipstick 0.2 mg/dL (0.2 mg/dL) Urine Leukocyte Esterase Small (NEG) Urine RBC 0 /HPF (0-2) Urine WBC Occ /HPF (0-4) Urine Squamous Epithelial Cells Few /LPF Urine Bacteria Few /HPF (0-FEW) POC Urine HCG, Qualitative Hcg negative (Negative) Erythrocyte Sedimentation Rate 5 (0-25) D-Dimer (Sarah) 0.80 ug/mlFEU (0.00-0.50) H Sodium Level 138 mmol/L (136-145) Potassium Level 5.8 mmol/L (3.5-5.1) H Chloride Level 107 mmol/L (98-107) Carbon Dioxide Level 24 mmol/L (21-32) Anion Gap 7 (6-14) Blood Urea Nitrogen 9 mg/dL (7-20) Creatinine 0.8 mg/dL (0.6-1.0) Estimated GFR (Cockcroft-Gault) 98.8 BUN/Creatinine Ratio 11 (6-20) Glucose Level 83 mg/dL (70-99) Calcium Level 9.0 mg/dL (8.5-10.1) Total Bilirubin 0.3 mg/dL (0.2-1.0) Aspartate Amino Transferase (AST) 17 U/L (15-37) Alanine Aminotransferase (ALT) 22 U/L (14-59) Alkaline Phosphatase 50 U/L (46-116) Troponin I Quantitative < 0.017 ng/mL (0.000-0.055) HY-Txb-V-Type Natriuretic Peptide 32 pg/mL (0-124) Total Protein 7.4 g/dL (6.4-8.2) Albumin 3.7 g/dL (3.4-5.0) Albumin/Globulin Ratio 1.0 (1.0-1.7) Laboratory Tests 03/01/18 23:30 EKG EKG Sinus Rhythm and T wave abnormality [] Interpretation Time: [address] Nayak Radiology/Procedures Radiology/Procedures Chest x ray, Ankle x ray, knee x ray[] Impressions: No acute findings and read by Dr Nayak Course & Med Decision Making Course & Med Decision Making Patient states she was homeless after she was diagnosed with Lupus and Fibromyalgia in 2009. Patient states that she also was suppose to follow up with a retail loss prevention officer and wear a halter monitor for the second time but that it never came in the mail. Patient states that while she was homeless she was going to hospital to hospital and that now she can not find a primary care physician and can not get her medications. Patient states she is having heart palpitations, bilateral knee and ankle pain and sharp pains in her left chest when taking a deep breath. Patient states at time she becomes soa with just talking. Upon examination, breath sounds are clear to auscultation in all lobes. Patient has no extremity edema. Afebrile. Speaks in full sentences. Patient knees and ankle bilaterally are tender to palpation. Patient denies nausea, vomiting, or diarrhea. Abdomen is soft and nontender. Patient denies urinary symptoms. Patients EKG shows peaked T waves which are subtly changed from old EKG. AO x4. Patient is neurologically intact. X rays are read by Dr Nayak and show no acute findings. Dr. Nayak is given report on the patient and I have handed the patient over at 2310. It was noted that the patient's potassium was slightly elevated at 5.8 that coupled with the fact that she had some subtle changes on her EKG she was given 30 g of Kayexalate. I've instructed her to follow with her primary care physician over the course of the next 1-2 days for recheck. I also let her know that she needs to return to the emergency department should she develop any new or concerning symptoms [] Xochilt Disclaimer Dragon Disclaimer This electronic medical record was generated, in whole or in part, using a voice recognition dictation system. Departure Departure Impression: Primary Impression: Anxiety Additional Impression: Hyperkalemia Disposition: HOME, SELF-CARE Condition: STABLE Referrals: NO PCP (PCP) Patient Instructions: Hyperkalemia Additional Instructions: Follow with her primary care physician on Friday for recheck. Return to the emergency department any new or concerning symptoms Problem Qualifiers YOEL SANTIAGO APRN Mar 01, 2018 22:19 LAINEY NAYAK DO Mar 02, 2018 00:18
--- NOTE | 2018-03-01 22:59 | RAD ---
ANKLE BILAT 2V, KNEE BILAT 2V, CHEST PA LATERAL Technique: PA and lateral views of the chest were obtained. Clinical History: PAIN Comparison: None. Two-view chest: The heart and pulmonary vasculature appear within normal limits. The lungs are clear. The pleural margins are clear. Impression: No acute chest process is seen. End impression 2 views bilateral knees: Limited 2 view AP lateral views of the knees were obtained bilaterally The visualized osseous structures appear normal. IMPRESSION: No acute findings. End impression 2 views bilateral ankles: Limited 2 view AP lateral views The visualized osseous structures appear normal. IMPRESSION: No acute findings. Electronically signed by: Gilson Villasenor III, MD (03/01/2018 10:55 PM) [facility]
--- NOTE | 2018-03-01 22:59 | RAD ---
ANKLE BILAT 2V, KNEE BILAT 2V, CHEST PA LATERAL Technique: PA and lateral views of the chest were obtained. Clinical History: PAIN Comparison: None. Two-view chest: The heart and pulmonary vasculature appear within normal limits. The lungs are clear. The pleural margins are clear. Impression: No acute chest process is seen. End impression 2 views bilateral knees: Limited 2 view AP lateral views of the knees were obtained bilaterally The visualized osseous structures appear normal. IMPRESSION: No acute findings. End impression 2 views bilateral ankles: Limited 2 view AP lateral views The visualized osseous structures appear normal. IMPRESSION: No acute findings. Electronically signed by: Gilson Villasenor III, MD (03/01/2018 10:55 PM) [facility]
[2018-03-01 23:52] LABS: CREATININE 0.8 mg/dL (0.6-1.0); GFR 98.8; POTASSIUM 5.8 mmol/L (3.5-5.1)
[2018-03-01 23:58] LABS: ALBUMIN 3.7 g/dL (3.4-5.0); TOTAL BILIRUBIN 0.3 mg/dL (0.2-1.0); TOTAL PROTEIN 7.4 g/dL (6.4-8.2)
[2018-03-02] VITALS: BP 176/95
[2018-03-02] MEDS ORDERED: SODIUM POLYSTYRENE SULFONATE 15 GM/60 ML ORAL.SUSP. PO ONE (00:30)
--- NOTE | 2018-03-02 09:19 | EKG ---
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
== END 2018-03-02 00:28 | disposition home or self-care (01) ==
LOC: ER 21:15
DX: F41.9 Anxiety disorder, unspecified (principal); E87.5 Hyperkalemia; M25.562 Pain in left knee; M25.561 Pain in right knee; M25.572 Pain in left ankle and joints of left foot; M25.571 Pain in right ankle and joints of right foot; I10 Essential (primary) hypertension; F20.9 Schizophrenia, unspecified; M32.9 Systemic lupus erythematosus, unspecified; Z86.73 Personal history of transient ischemic attack (TIA), and cerebral infarction without residual deficits; F32.9 Major depressive disorder, single episode, unspecified; Z88.5 Allergy status to narcotic agent
CPT/HCPCS: 36415; 71046; 73560; 73600; 80053; 81001; 81025; 83880; 84484; 85379; 85651; 87086; 93005; 99285-25

== ENCOUNTER 2020-07-24 04:26 | Emergency (ER) | payer MEDICAID, OTHER ==
[~2020-07-24] VITALS: Ht 175.3 cm; Wt 77.3 kg
[~2020-07-24 04:26] MED LIST changes: -CLIN300C8 PO; +CLIN300C9 PO; -GABA-587 PO; +GABA-689 PO; -HYDR12.53 PO; +HYDR12.575 PO; -LOSA25TA5 PO; +LOSA25TA54 PO; -OXYC-323 PO; -OXYC-328 PO; +OXYC1TAB15 PO; +OXYC1TAB22 PO
--- NOTE | 2020-07-24 04:44 | PHYS DOC ---
Past Medical History Past Medical History: Anxiety, Arthritis, Depression, Fibromyalgia, Hyper tension, Seizure, Schizophrenia, TIA, Other Additional Past Medical Histor: lupus, RA Past Surgical History: , Tubal ligation Smoking Status: Current Every Day Smoker Alcohol Use: None Drug Use: Marijuana Adult General Chief Complaint Chief Complaint: RIB PAIN [facility] HPI Patient is a 35 year old with a past medical history of hypertension, fibromyalgia, lupus, schizophrenia, polysubstance abuse now presenting the emergency department complaint of left-sided rib pain. Patient states that she had new onset of epileptic event or in early March 2020. States that during this time she was seen at another hospital for left-sided chest pain and was ultimately diagnosed with a left rib fracture. Patient states that this has been healing poorly and she has been having persistent pain of the left ribs since that time. States that she is having difficulty sleeping on that side. Denies any new injury. Denies any nausea, vomiting, fever, chills, dizziness or lightheadedness. Review of Systems Review of Systems Constitutional: Denies fever or chills [] Eyes: Denies change in visual acuity, redness, or eye pain [] HENT: Denies nasal congestion or sore throat [] Respiratory: Denies cough or shortness of breath [] Cardiovascular: No additional information not addressed in HPI [] GI: Denies abdominal pain, nausea, vomiting, bloody stools or diarrhea [] : Denies dysuria or hematuria [] Musculoskeletal: Denies back pain or joint pain [] Integument: Denies rash or skin lesions [] Neurologic: Denies headache, focal weakness or sensory changes [] Endocrine: Denies polyuria or polydipsia [] All other systems were reviewed and found to be within normal limits, except as documented in this note. Current Medications Current Medications Current Medications Medications (Trade) Dose Ordered Sig/Mago Start Time Stop Time Status Last Admin Dose Admin Cyclobenzaprine HCl (Flexeril) 10 mg 1X ONCE 07/24/20 04:45 07/24/20 04:46 DC 07/24/20 04:45 10 MG Ibuprofen (Motrin) 800 mg 1X ONCE 07/24/20 04:45 07/24/20 04:46 DC 07/24/20 04:45 800 MG Lidocaine (Lidoderm) 1 patch ONCE ONCE 07/24/20 05:45 07/24/20 05:46 Allergies Allergies Allergies Coded Allergies Type Severity Reaction Last Updated Verified naproxen Allergy Intermediate 10/24/16 Yes Physical Exam Physical Exam Constitutional: Well developed, well nourished, no acute distress, non-toxic appearance. [] HENT: Normocephalic, atraumatic, bilateral external ears normal, oropharynx moist, no oral exudates, nose normal. [] Eyes: PERRLA, EOMI, conjunctiva normal, no discharge. [] Neck: Normal range of motion, no tenderness, supple, no stridor. [] Cardiovascular:Heart rate regular rhythm, no murmur [] Lungs & Thorax: Bilateral breath sounds clear to auscultation. Moderate left lower thoracic tenderness Abdomen: Bowel sounds normal, soft, no tenderness, no masses, no pulsatile masses. [] Skin: Warm, dry, no erythema, no rash. [] Back: No tenderness, no CVA tenderness. [] Extremities: No tenderness, no cyanosis, no clubbing, ROM intact, no edema. [] Neurologic: Alert and oriented X 3, normal motor function, normal sensory function, no focal deficits noted. [] Psychologic: Affect normal, judgement normal, mood normal. [] Current Patient Data Vital Signs Vital Signs Date Time Temp Pulse Resp B/P (MAP) Pulse Ox O2 Delivery O2 Flow Rate FiO2 07/24/20 04:30 97.5 97 14 133/100 (111) 100 Room Air 97.5 EKG EKG [] Radiology/Procedures Radiology/Procedures [] Course & Med Decision Making Course & Med Decision Making Pertinent Labs and Imaging studies reviewed. (See chart for details) 35-year-old female presenting the emergency department complaining of acute left-sided rib pain with evidence of tenderness in the area. At this time will attempt to treat the patient symptomatically for presumed costochondritis versus posterior rib fracture versus muscle spasm and obtain rib series. XR negative for fracture. PAtient repeatedly asking for stronger pain meidcaiton and when denied asked if she can be discharged as quickly as possible. Dragon Disclaimer Dragon Disclaimer This electronic medical record was generated, in whole or in part, using a voice recognition dictation system. Departure Departure Impression: Primary Impression: Intercostal muscle strain Disposition: 01 DC HOME SELF CARE/HOMELESS Condition: GOOD Referrals: LIO ESPINO MD Patient Instructions: Muscle Strain Additional Instructions: EMERGENCY DEPARTMENT GENERAL DISCHARGE INSTRUCTIONS Thank you for coming to [facility] Emergency Department (ED) today and trusting us with you care. We trust that you had a positive experience in our Emergency Department. If you wish to speak to the department management, you may call the Director at [phone]. YOUR FOLLOW UP INSTRUCTIONS ARE FOLLOWS: 1. Do you have a private Doctor? If you do not have a private doctor, please ask for a resource list of physicians or clinics that may be able to assist you with follow up care. 2. The Emergency Physicain has interpreted your x-rays. The X-Ray specialist will also review them. If there is a change in the findings, you will be notified in 48 hours when at all possible. 3. A lab test or culture has been done, your results will be reviewed and you will be notified if you need a change in treatment. ADDITIONAL INSTRUCTIONS AND INFORMATION: 1. Your care today has been supervised by a physician who is specially trained in emergency care. Many problems require more than one evaluation for a complete diagnosis and treatment. We recommend that you schedule your follow up appointment as recommended to ensure complete treatment of you illness or injury. If you are unable to obtain follow up care and continue to have a problem, or if your condition worsens, we recommend that you return to the ED. 2. We are not able to safely determine your condition over the phone nor are we able to give sound medical advice over the phone. For these safety reasons, if you call for medical advice we will ask you to come to the ED for further evaluation. 3. If you have any questions regarding these discharge instructions please call the ED at [phone]. SAFETY INFORMATION: In the interest of safety, wellness, and injury prevention; we encourage you to wear your sealbelt, if you smoke; quite smoking, and we encourage family to use a protective helmet for bicycling and other sporting events that present an increased risk for head injury. IF YOUR SYMPTOMS WORSEN OR NEW SYMPTOMS DEVELOP, OR YOU HAVE CONCERNS ABOUT YOUR CONDITION; OR IF YOUR CONDITION WORSENS WHILE YOU ARE WAITING FOR YOUR FOLLOW UP APPOINTMENT; EITHER CONTACT YOUR PRIMARY CARE DOCTOR, THE PHYSICIAN WHOSE NAME AND NUMBER YOU WERE GIVEN, OR RETURN TO THE ED IMMEDIATELY. BIANCA COONEY MD Jul 24, 2020 04:43
[2020-07-24] MEDS ORDERED: IBUPROFEN 400 MG TABLET. PO ONE (04:45)
[2020-07-24] MEDS ORDERED: CYCLOBENZAPRINE 10 MG TABLET. PO ONE (04:45)
--- NOTE | 2020-07-24 05:15 | RAD ---
LEFT RIB SERIES Clinical Indication: Reason: chest pain / Spl. Instructions: / History: Comparison: None. Findings: There is no acute displaced rib fracture. A nondisplaced or subtle rib fracture could be obscured. Cardiac size appears normal. The visualized lung is clear. IMPRESSION: No acute displaced rib fracture. Electronically signed by: Lobito Cee MD (07/24/2020 5:13 AM) [facility]
[2020-07-24 05:30] VITALS: BP 111/60
[2020-07-24] MEDS ORDERED: LIDOCAINE (700MG/PATCH) PATCH. TD ONE (05:45)
== END 2020-07-24 06:00 | disposition home or self-care (01) ==
LOC: ER 04:26
DX: S29.011A Strain of muscle and tendon of front wall of thorax, initial encounter (principal); F41.9 Anxiety disorder, unspecified; M19.90 Unspecified osteoarthritis, unspecified site; F32.9 Major depressive disorder, single episode, unspecified; M79.7 Fibromyalgia; I10 Essential (primary) hypertension; F20.9 Schizophrenia, unspecified; F17.200 Nicotine dependence, unspecified, uncomplicated; F12.90 Cannabis use, unspecified, uncomplicated; Z98.51 Tubal ligation status; Z88.8 Allergy status to other drugs, medicaments and biological substances; Z86.73 Personal history of transient ischemic attack (TIA), and cerebral infarction without residual deficits; Z98.890 Other specified postprocedural states; X58.XXXA Exposure to other specified factors, initial encounter; Y93.89 Activity, other specified; Y92.89 Other specified places as the place of occurrence of the external cause; Y99.8 Other external cause status
CPT/HCPCS: 71100; 99284

== ENCOUNTER 2021-07-22 18:06 | Emergency (ER) | payer MEDICAID ==
[~2021-07-22] VITALS: Ht 165.1 cm; Wt 68.2 kg
[~2021-07-22 18:06] MED LIST changes: +CLIN-94 PO; -CLIN300C9 PO; +CYCL10TA19 PO; -CYCL10TA2 PO; -DULO60CA6 PO; +DULO60CA7 PO
[2021-07-22 18:48] LABS: BASO % 1 % (0-3); EOS % 1 % (0-3); HEMOGLOBIN 10.9 g/dL (12.0-15.5); LYMPH # 1.7 x10^3/uL (1.0-4.8); LYMPH % 38 % (24-48); MEAN CORPUSCULAR HEMOGLOBIN 23 pg (25-35); MEAN CORPUSCULAR HGB CONC 31 g/dL (31-37); MEAN CORPUSCULAR VOLUME 74 fL (79-100); MONO # 0.4 x10^3/uL (0.0-1.1); MONO % 9 % (0-9); NEUT # 2.3 x10^3/uL (1.8-7.7); NEUT % 52 % (31-73); PLATELET COUNT 292 x10^3/uL (140-400); RED BLOOD COUNT 4.71 x10^6/uL (3.50-5.40); RED CELL DISTRIBUTION WIDTH 16.9 % (11.5-14.5); WHITE BLOOD COUNT 4.5 x10^3/uL (4.0-11.0)
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
[2021-07-22 18:56] LABS: CALCIUM 8.5 mg/dL (8.5-10.1); CREATININE 0.7 mg/dL (0.6-1.0); GFR 113.3; POTASSIUM 3.5 mmol/L (3.5-5.1)
[2021-07-22 19:02] LABS: ALBUMIN 3.8 g/dL (3.4-5.0); ALBUMIN/GLOBULIN RATIO 0.9 (1.0-1.7); TOTAL BILIRUBIN 0.4 mg/dL (0.2-1.0); TOTAL PROTEIN 8.2 g/dL (6.4-8.2)
[2021-07-22 19:20] VITALS: BP 203/102
[2021-07-22 19:42] LABS: BILIRUBIN,URINE NEGATIVE (NEG); CLARITY,URINE CLEAR; COLOR,URINE YELLOW; NITRITE,URINE NEGATIVE (NEG); PH,URINE 6.5 (<5.0-8.0); PROTEIN,URINE NEGATIVE (NEG-TRACE); UROBILINOGEN,URINE 0.2 mg/dL (0.2 mg/dL)
[2021-07-22 19:48] LABS: AMPHETAMINE/METHAMPHETAMINE NEG (NEG); BACTERIA,URINE FEW /HPF (0-FEW); BARBITURATES NEG (NEG); BENZODIAZEPINES NEG (NEG); CANNABINOIDS POS (NEG); COCAINE NEG (NEG); METHADONE NEG (NEG); OPIATES POS (NEG); PHENCYCLIDINE POS (NEG); RBC,URINE OCC /HPF (0-2)
== END 2021-07-23 02:23 | disposition home or self-care (01) ==
LOC: ER 18:06
DX: S62.607 Fracture of unspecified phalanx of left little finger (principal); F16.229 Hallucinogen dependence with intoxication, unspecified; F41.9 Anxiety disorder, unspecified; F32.9 Major depressive disorder, single episode, unspecified; M79.7 Fibromyalgia; I10 Essential (primary) hypertension; F20.9 Schizophrenia, unspecified; F17.200 Nicotine dependence, unspecified, uncomplicated; M06.9 Rheumatoid arthritis, unspecified; Z86.73 Personal history of transient ischemic attack (TIA), and cerebral infarction without residual deficits; Z88.8 Allergy status to other drugs, medicaments and biological substances; Y08.89XS Assault by other specified means, sequela
CPT/HCPCS: 36415; 80053; 80307; 81001; 85025; 87086; 99284